=== PATIENT | female | born 1945 | race Two or more races ===

== ENCOUNTER 2021-03-01 09:34 | Emergency (ER) | payer MEDICARE, OTHER ==
[~2021-03-01] VITALS: Ht 152.4 cm; Wt 52.2 kg
[2021-03-01 10:43] VITALS: BP 117/61
== END 2021-03-01 12:08 | disposition home or self-care (01) ==
LOC: ER 09:34
DX: S39.012A Strain of muscle, fascia and tendon of lower back, initial encounter (principal); R00.0 Tachycardia, unspecified; W01.0XXA Fall on same level from slipping, tripping and stumbling without subsequent striking against object, initial encounter; Y93.01 Activity, walking, marching and hiking; Y92.89 Other specified places as the place of occurrence of the external cause; Y99.8 Other external cause status
CPT/HCPCS: 72100; 93005